=== PATIENT | female | born 1995 | race Caucasian/White ===

== ENCOUNTER 2019-04-05 16:22 | Inpatient (IN) | payer MEDICAID ==
[~2019-04-05] VITALS: Ht 162.6 cm; Wt 80.7 kg
[2019-04-05 16:26] VITALS: BP_SYST 138
[2019-04-05] MEDS ORDERED: NACL 0.9% 1,000 ML IV ONE (16:26)
[2019-04-05] MEDS ORDERED: MORPHINE 4 MG/ML INJ. SYRINGE IVP ONE ×2 (16:30→18:30)
[2019-04-05] MEDS ORDERED: ONDANSETRON HCL 4 MG/2 ML VIAL IVP ONE (16:30)
--- NOTE | 2019-04-05 16:36 | NUR ---
Patient to ER bed 7 to gown for evaluation. Side rails up. Report given to SIMONA Perez.
--- NOTE | 2019-04-05 16:49 | NUR ---
ER Dr. Perales at bedside examining patient.
[2019-04-05 16:54] LABS: BILIRUBIN,URINE NEGATIVE (NEGATIVE); BLOOD, URINE NEGATIVE (NEGATIVE); CLARITY/URINE CLEAR (CLEAR); COLOR,URINE YELLOW (YELLOW); GLUCOSE,URINE NEGATIVE (NEGATIVE); KETONES,URINE NEGATIVE (NEGATIVE); LEUKOCYTE ESTERASE ,URINE NEGATIVE (NEGATIVE); NITRITE, URINE NEGATIVE (NEGATIVE); PROTEIN URINE NEGATIVE (NEGATIVE); UROBILINOGEN,URINE 0.2 (0.2-1.0)
--- NOTE | 2019-04-05 16:56 | NUR ---
special education curriculum specialist Aman at bedside for transport to exam. Per Dr. Perales, he would like the CT prior to ultrasound.
--- NOTE | 2019-04-05 16:59 | NUR ---
PATIENT PRESENTS TO THE ER WITH HX OF INTERMITTENT RIGHT LOWER QUADRANT PAIN FOR ONE MONTH, TYPICALLY CORRELATING WITH MENSTRATION; NO TRAUMA, NO OTHER REMARKABLE S/S; PATIENT TO ER #7 AT 1635 AND ERMD EVALUATION AT 1650
[2019-04-05 17:10] LABS: BASOPHILS % (AUTO) 0.3 % (0.0-2.0); EOSINOPHILS # (AUTO) 0.1 K/uL (0.0-0.4); EOSINOPHILS % (AUTO) 0.7 % (0.0-4.0); HEMATOCRIT 46.3 % (36-48); HEMOGLOBIN 15.6 g/dL (12.0-16.0); LYMPHOCYTES # (AUTO) 1.4 K/uL (1.0-5.5); LYMPHOCYTES % (AUTO) 14.2 % (20.5-51.5); MEAN CORPUSCULAR HEMOGLOBIN 31 pg (27-31); MEAN CORPUSCULAR HGB CONC 34 % (32-36); MEAN CORPUSCULAR VOLUME 91 fL (79.0-98.0); MONOCYTES # (AUTO) 0.3 K/uL (0.0-1.0); MONOCYTES % (AUTO) 2.7 % (1.7-9.3); NEUTROPHILS # (AUTO) 8.3 K/uL (1.8-7.7); NEUTROPHILS % (AUTO) 82.1 % (40.0-70.0); PLATELET COUNT (AUTO) 248 K/uL (130-430); RED BLOOD CELL COUNT(AUTO) 5.08 MIL/uL (4.2-6.2); RED CELL DISTRIBUTION WIDTH 12.6 % (9.0-15.0); WHITE BLOOD COUNT (AUTO) 10.2 K/uL (4.8-10.8)
[2019-04-05 17:11] LABS: BARBITURATE, URINE NEGATIVE (NEG <=200); BENZODIAZEPINE, URINE NEGATIVE (NEG <=150); CANNABINOID, URINE NEGATIVE (NEG <=50); COCAINE, URINE NEGATIVE (NEG <=150); METHAMPHETAMINES SCREEN,URINE NEGATIVE (NEG <=500); OPIATE, URINE NEGATIVE (NEG <=100); PHENCYCLIDINE SCREEN,URINE NEGATIVE (NEG <=25); UR TRICYCLIC ANTIDEPRESSANTS NEGATIVE (NEG <=300); URINE AMPHETAMINE NEGATIVE (NEG <=500); URINE METHADONE NEGATIVE (NEG <=200); URINE OXYCODONE SCREEN NEGATIVE (NEG <=100); URINE PROPOXYPHENE SCREEN NEGATIVE (NEG <=300)
[2019-04-05 17:15] LABS: ANION GAP 10 (5-15); CALCIUM 9.3 mg/dL (8.4-11.0); CHLORIDE 100 mmol/L (98-107); CREATININE 0.72 mg/dL (0.55-1.30); GLUCOSE 105 mg/dL (70-99); SODIUM SERUM 136 mmol/L (136-145); UREA NITROGEN, BLOOD 12 mg/dL (8-21)
[2019-04-05 17:16] LABS: GFR AFRICAN AMERICAN 130 mL/min (>90)
[2019-04-05 17:19] LABS: PROTHROMBIN TIME 9.7 SECS (9.5-12.5)
[2019-04-05 17:21] LABS: ALANINE AMINOTRANSFERASE 33 U/L (12-78); ALBUMIN 4.5 g/dL (3.4-4.8); AMYLASE 104 U/L (0-100); ASPARTATE AMINOTRANSFERASE 29 U/L (10-37); LIPASE 184 U/L (73-393); TOTAL BILIRUBIN 0.5 mg/dL (0.0-1.0)
[2019-04-05 17:22] LABS: ALCOHOL, BLOOD < 3 mg/dL (<10)
--- NOTE | 2019-04-05 17:30 | NUR ---
REASSESSMENT; PATIENT REMAINS SEDATE AND STATES HER PAIN IS IMPROVING
--- NOTE | 2019-04-05 19:01 | NUR ---
REASSESSMENT; PREPARATIONS TO ADMIT TO OBSERVATION FOR DR JOSE; PATIENT STATES HER PAIN HAS RETURNED; ERMD ADVISED
[2019-04-05] MEDS ORDERED: MORPHINE 4 MG/ML INJ. SYRINGE IVP PRN (19:15)
[2019-04-05] MEDS ORDERED: D5LR 1,000 ML IV ONE (19:15)
--- NOTE | 2019-04-05 19:27 | NUR ---
Patient will be admitted to care of Dr. Turner Win. Admitted to Medical Surgical Observation unit. Belongings list completed. Complete and up to date summary report printed. SBAR report to be given at bedside with opportunity for questions.
--- NOTE | 2019-04-05 19:43 | NUR ---
Patient Will go to room 126 B. VSS. Transfer to [facility]. IV present no sign or symptom of infiltration.
--- NOTE | 2019-04-05 19:58 | NUR ---
ADMIT NOTE Received pt from ER to the floor with a diagnosis of pelvic pain with right dermoid cyst. Admission process initiated. patient oriented to pain management, safety and call light-teach back done.
--- NOTE | 2019-04-05 20:09 | NUR ---
CONSULTATION PAGED/CALLED Reason for Consultation: SURGICAL Person Who was Notified: FARNAZ Consulting Physician: Baker Apprentice Specialty: Ordering Physician:
[2019-04-05 20:10] VITALS: BP_SYST 115
--- NOTE | 2019-04-05 20:15 | NUR ---
spoke to dr. leon- courtney hammonds about the diagnosis, no orders made.
[2019-04-05] MEDS ORDERED: FLU VACC QS2019-20 36MOS UP/PF 60 MCG/0.5 ML SYRINGE I.M. PRN (20:30)
--- NOTE | 2019-04-05 20:45 | NUR ---
ADMISSION PHYSICAL ASSESSMENT NOTES; took over care from nurse Satya, pt. awake, alert and oriented. call light at bedside, IV infusing on left hand #24, will start another IV location later. no pain at this time. moves all extremities well. pt. family at bedside. on room air. kept NPO till further order.
--- NOTE | 2019-04-05 22:00 | NUR ---
NOTES: pt. resting, condition observed. IV infusing via rt. antecubital. pt. needs attended. pt. ambulated to the restroom.
[2019-04-06] VITALS (11 sets, daily range): BP systolic 105–125
--- NOTE | 2019-04-06 00:15 | NUR ---
NOTES: pt. pretty awake with parents at bedside, informed charge nurse Peter about the parents staying, since they live far.
[2019-04-06] MEDS ORDERED: MORPHINE 2 MG/ML INJ. SYRINGE IVP PRN (00:30)
[2019-04-06] MEDS ORDERED: MORPHINE 4 MG/ML INJ. SYRINGE IVP PRN ×2 (00:30→14:15)
--- NOTE | 2019-04-06 04:00 | NUR ---
NOTES: pt. been sleeping, no complaints. parents are at bedside. condition observed. call light within reach.
--- NOTE | 2019-04-06 05:30 | NUR ---
NOTES: pt. awakened, rechecked VS. been sleeping , no pain noted. IVF infusing.
--- NOTE | 2019-04-06 06:30 | NUR ---
CLOSING NOTES; pt. still asleep. IVF infusing. no further complaints. kept NPO. call light within reach.
[2019-04-06 07:02] LABS: BASOPHILS % (AUTO) 0.2 % (0.0-2.0); EOSINOPHILS # (AUTO) 0.1 K/uL (0.0-0.4); EOSINOPHILS % (AUTO) 1.4 % (0.0-4.0); HEMATOCRIT 41.7 % (36-48); LYMPHOCYTES # (AUTO) 2.3 K/uL (1.0-5.5); LYMPHOCYTES % (AUTO) 31.8 % (20.5-51.5); MEAN CORPUSCULAR HEMOGLOBIN 31 pg (27-31); MEAN CORPUSCULAR HGB CONC 34 % (32-36); MEAN CORPUSCULAR VOLUME 92 fL (79.0-98.0); MONOCYTES # (AUTO) 0.5 K/uL (0.0-1.0); MONOCYTES % (AUTO) 6.8 % (1.7-9.3); NEUTROPHILS # (AUTO) 4.3 K/uL (1.8-7.7); NEUTROPHILS % (AUTO) 59.8 % (40.0-70.0); PLATELET COUNT (AUTO) 213 K/uL (130-430); RED BLOOD CELL COUNT(AUTO) 4.55 MIL/uL (4.2-6.2); RED CELL DISTRIBUTION WIDTH 12.5 % (9.0-15.0); WHITE BLOOD COUNT (AUTO) 7.3 K/uL (4.8-10.8)
--- NOTE | 2019-04-06 07:15 | NUR ---
Received patient and endorsed from [facility] shift nurse. Patient in bed, sleeping, side rails x 3 up. Call light with in reach. Breathing even and unlabored. In no acute distress. Denies pain.
--- NOTE | 2019-04-06 12:30 | NUR ---
Performed CHG bath on patient and went over surgery checklist.
--- NOTE | 2019-04-06 13:05 | NUR ---
Patient left room via gurney with OR nurse to surgery.
[2019-04-06] MEDS ORDERED: DEXAMETHASONE SOD PHOSPHATE 4 MG/ML VIAL IVP ONE (13:30)
[2019-04-06] MEDS ORDERED: SUCCINYLCHOLINE CHLORIDE 20 MG/ML(QUELICIN) IVP ONE (13:30)
[2019-04-06] MEDS ORDERED: MIDAZOLAM HCL 5 MG/5 ML VIAL IVP ONE (13:30)
[2019-04-06] MEDS ORDERED: ROCURONIUM BROMIDE 10 MG/ML (ZEMURON) IV ONE (13:30)
[2019-04-06] MEDS ORDERED: fentaNYL CITRATE 250 MCG/5 ML AMP IV ONE (13:30)
[2019-04-06] MEDS ORDERED: ONDANSETRON HCL 4 MG/2 ML VIAL IVP ONE (13:30)
[2019-04-06] MEDS ORDERED: NS IRRIG SOLN 1000 ML IR ONE (13:30)
[2019-04-06] MEDS ORDERED: LR 1,000 ML IV.SOLN IV ONE (13:30)
[2019-04-06] MEDS ORDERED: PROPOFOL 200MG/ 20ML VIAL (DIPRIVAN) IV ONE (13:30)
[2019-04-06] MEDS ORDERED: KETOROLAC TROMETHAMINE 30 MG VIAL IVP ONE (13:30)
[2019-04-06] MEDS ORDERED: SEVOFLURANE 15 MIN GAS INH ONE (13:30)
[2019-04-06] MEDS ORDERED: ONDANSETRON HCL 4 MG/2 ML VIAL IVP PRN ×2 (14:15→14:30)
[2019-04-06] MEDS ORDERED: HYDROcodone/ACETAMIN 5-325 MG TAB (NORCO/ VICODIN) PO PRN (14:15)
[2019-04-06] MEDS ORDERED: LR 1,000 ML IV SCH (14:22)
[2019-04-06] MEDS ORDERED: HYDROmorphone 1 MG INJ. 1 MG/ML AMPUL IVP PRN (14:30)
[2019-04-06] MEDS ORDERED: MEPERIDINE HCL/PF 25 MG/ML DISP.SYRIN IVP PRN (14:30)
[2019-04-06] MEDS ORDERED: HYDROmorphone 1 MG INJ. 1 MG/ML AMPUL ONE (14:39)
--- NOTE | 2019-04-06 15:45 | NUR ---
Patient returned from surgery at 1530 via gurney, received report from OR nurse Brittny. Patient tolerated procedure well. Assessed patient and started vital signs every 15 minutes for 1 hour, will follow with vital signs for 30 minutes twice, then will assess vital signs an hour later. VS stable. Breathing even and unlabored. In no acute distress. Pain 5/10 related to incision, patient refused pain medication. Patient alert and oriented to time, person, place, situation. Will continue to monitor.
[2019-04-06] MEDS: CEFAZOLIN 1 GM IVPB PREMIX 50 ML IV SCH (16:09)
[2019-04-06] MEDS: LR 1,000 ML IV SCH (16:30)
[2019-04-06] MEDS: HYDROcodone/ACETAMIN 7.5-325 MG TAB PO PRN (18:27)
--- NOTE | 2019-04-06 18:30 | NUR ---
Offered patient influenza vaccine, patient request tomorrow. Will endorse to oncoming nurse.
--- NOTE | 2019-04-06 19:20 | NUR ---
Endorsed patient and gave report to [facility] shift nurse, informed patient requested influenza vaccine tomorrow. Patient in no acute distress. Breathing even and unlabored. Call light with in reach. Side rails x 3 up.
--- NOTE | 2019-04-06 21:40 | NUR ---
Pt received resting in bed family at bed side. Pt c/o pain 4/10 to abdominal surgical site, which is covered with dry clean dressing. Pt also stated, she felt the need to void. Pt was given Norco7.5mg P.O. and assisted to the bathroom, and did void 200ccs of clear yellow urine, with a sight odor. Pt tolerated ambulating to the bathroom well, with no pain. Pt's braxton sounds clear, abdomen is soft non distended, skin warn dry intact. Bed in low position with wheels locked call light in reach, mom at bed side. VS/S.
[2019-04-07] VITALS: BP_SYST 115
[2019-04-07] MEDS: LR 1,000 ML IV SCH ×3 (00:08→20:31)
[2019-04-07] MEDS: HYDROcodone/ACETAMIN 7.5-325 MG TAB PO PRN ×4 (03:52→23:07)
[2019-04-07] MEDS: CEFAZOLIN 1 GM IVPB PREMIX 50 ML IV SCH (03:54)
--- NOTE | 2019-04-07 04:05 | NUR ---
Pt c/o pain and was given 7.5mg [place] P.O. no other needs at this time VS/S
[2019-04-07 05:04] VITALS: BP_SYST 100
--- NOTE | 2019-04-07 05:56 | NUR ---
Pt remain resting comfortable in bed with eyes close no sign of discomfort. Will endorse to day shift nurse.
[2019-04-07 06:03] LABS: BASOPHILS % (AUTO) 0.1 % (0.0-2.0); EOSINOPHILS % (AUTO) 0.1 % (0.0-4.0); HEMATOCRIT 38.1 % (36-48); HEMOGLOBIN 12.7 g/dL (12.0-16.0); LYMPHOCYTES # (AUTO) 1.5 K/uL (1.0-5.5); LYMPHOCYTES % (AUTO) 16.7 % (20.5-51.5); MEAN CORPUSCULAR HEMOGLOBIN 31 pg (27-31); MEAN CORPUSCULAR HGB CONC 33 % (32-36); MEAN CORPUSCULAR VOLUME 92 fL (79.0-98.0); MONOCYTES # (AUTO) 0.7 K/uL (0.0-1.0); MONOCYTES % (AUTO) 7.9 % (1.7-9.3); NEUTROPHILS % (AUTO) 75.2 % (40.0-70.0); PLATELET COUNT (AUTO) 201 K/uL (130-430); RED BLOOD CELL COUNT(AUTO) 4.16 MIL/uL (4.2-6.2); RED CELL DISTRIBUTION WIDTH 12.5 % (9.0-15.0); WHITE BLOOD COUNT (AUTO) 9.3 K/uL (4.8-10.8)
[2019-04-07 08:00] VITALS: BP_SYST 106
[2019-04-07 12:25] VITALS: BP_SYST 102
[2019-04-07 16:29] VITALS: BP_SYST 103
[2019-04-07 20:00] VITALS: BP_SYST 101
--- NOTE | 2019-04-07 20:00 | NUR ---
report recieved @ start of shift, a/o/x/4, respirations even and unlabored, room air, family @ bedside, lower abdominal dressing C/D/I, denies pain @ this time, LR infusing @ 75 ml/hr in LAC, s/l patent intact in RAC, SCD'S on bilateral lower extremities, able to ambulate to restroom with SBA voiding clear yellow urine, SR'S up X'S 2, call light within reach and bed in low position, tolerating po fluids well, no N/V reported.Afebrile, will continue to monitor for any s/s of distress.
--- NOTE | 2019-04-08 | NUR ---
continues to rest quietly in bed with eyes closed, easily aroused,medicated with [place] 7.5 po for c/o abdominal incisional pain, mother @ bedside, voiding clear yellow urine, will continue to monitor for s/s of distress.
[2019-04-08 00:04] VITALS: BP_SYST 100
[2019-04-08 03:46] VITALS: BP_SYST 97
--- NOTE | 2019-04-08 04:00 | NUR ---
easily aroused while resting uietly in bed with eyes closed, denies pain, abdominal dressing remains C/D/I, will continue to monitor.
[2019-04-08] MEDS: LR 1,000 ML IV SCH (06:08)
--- NOTE | 2019-04-08 07:40 | NUR ---
INITIAL NOTE PT AWAKE, PAIN CONTROLLED AT THIS TIME. IVF INFUSING WELL. SCDS IN PLACE. ABDOMINAL DRESSING DRY AND INTACT. EDUCATED PT ON HUGGING PILLOW TOWARDS ABDOMEN WHEN COUGHING. PT VERBALIZED UNDERSTANDING AND DEMONSTRATED FEED BACK. MOTHER AT BEDSIDE. CALL LIGHT WITHIN REACH, BED IN LOW AND LOCKED POSITION. EDUCATED PT ON SAFETY ON USE OF BED ALARM, PT VERBALIZED UNDERSTANDING. PT REFUSED BED ALARM.
[2019-04-08 08:00] VITALS: BP_SYST 105
--- NOTE | 2019-04-08 08:00 | NUR ---
DR. DAMON ASKEW AT BEDSIDE EXAMINING PT. MD TO START PT ON REGULAR DIET. PT IS PASSING GAS. MD TO DISCHARGE PT HOME. VERIFIED WITH READ BACK.
--- NOTE | 2019-04-08 09:40 | NUR ---
RN ROUNDS PT AWAKE, DENIES ANY PAIN OR DISCOMFORT. PT TOLERATED BREAKFAST WELL.
[2019-04-08 09:43] VITALS: BP_SYST 105
--- NOTE | 2019-04-08 11:30 | NUR ---
DISCHARGE NOTE DISCHARGE PACKET AND INSTRUCTIONS WITH PT. PT DENIES ANY PAIN OR DISCOMFORT. ALL BELONGINGS WITH PT. IV CATHETERS REMOVED, CATHETERS INTACT, NO BLEEDING. [facility] BAND REMOVED. FAMILY AT BEDSIDE, SISTER TO DRIVE MOTHER AND PT HOME IN PRIVATE AUTO. SARAH AMOS ESCORTED PT VIA WHEELCHAIR TO [facility].
== END 2019-04-08 11:30 | disposition home or self-care (01) | DRG 513 ==
LOC: SED 16:22 → SMU 19:04 → OBSVTOIN 04-07 13:57
PROVIDERS: ADMIT Obstetrics & Gynecology; ATTEND Obstetrics & Gynecology
PROC: 0UT00ZZ Resection of Right Ovary, Open Approach (ICD-10-PCS; principal; 2019-04-07)
DX: N83.201 Unspecified ovarian cyst, right side (principal); Z79.899 Other long term (current) drug therapy
CPT/HCPCS: 36415; 71045; 76830-TC; 76857; 80053; 80307; 81003; 82150-TC; 83605; 83690-TC; 85025; 85610-TC; 85730-TC; 87040-TC; 88307; 96361; 96374; 96375; 96376; 99285; G0378; G0482; J0330; J0690; J1100; J1170; J1885; J2250; J2270; J2405; J2704; J3010; J7120